=== PATIENT | female | born 1980 | race Two or more races ===

== ENCOUNTER 2018-08-29 20:07 | Emergency (ER) | payer SELFPAY ==
[~2018-08-29] VITALS: Ht 157.5 cm; Wt 68.0 kg
[2018-08-29 20:30] VITALS: BP 135/95
== END 2018-08-29 22:38 | disposition home or self-care (01) ==
LOC: ER 20:11
DX: M62.838 Other muscle spasm (principal); M54.2 Cervicalgia; Z88.0 Allergy status to penicillin; V43.63XA Car passenger injured in collision with pick-up truck in traffic accident, initial encounter; Y93.89 Activity, other specified; Y99.8 Other external cause status; Y92.410 Unspecified street and highway as the place of occurrence of the external cause
CPT/HCPCS: 70450; 72070; 72100; 72125